=== PATIENT | male | born 1960 | race Two or more races ===

== ENCOUNTER 2017-01-07 21:45 | Emergency (ER) | payer MEDICARE ==
[2017-01-07 22:19] LABS: URINE APPEARANCE CLOUDY; URINE BILIRUBIN NEGATIVE (NEGATIVE); URINE BLOOD 4+ (NEGATIVE); URINE COLOR YELLOW; URINE GLUCOSE (UA) 3+ (NEGATIVE); URINE LEUKOCYTE ESTERASE NEGATIVE (NEGATIVE); URINE NITRITE NEGATIVE (NEGATIVE); URINE PROTEIN 1+ (NEGATIVE); URINE UROBILINOGEN NORMAL (0-1 mg/dl)
[2017-01-07 22:32] LABS: URINE BACTERIA FEW; URINE EPITHELIAL CELLS 0-1 /hpf; URINE WBC 0-1 /hpf
[2017-01-07] MEDS ORDERED: ONDANSETRON 4 MG/2ML 2 ML VIAL ONE (23:01)
[2017-01-07] MEDS ORDERED: KETOROLAC TROMETHAMINE 30 MG/ML 1 ML VIAL ONE (23:01)
[2017-01-07] MEDS ORDERED: HYDROMORPHONE HCL 1 MG/ML SYRINGE ONE (23:02)
[2017-01-07 23:23] LABS: ABSOLUTE NEUTROPHIL COUNT 10.1 K/mm3 (1.8-7.7); BASO % 0.2 % (0.2-1.0); EOS # 0.1 (0.0-0.5); EOS % 0.9 % (0.9-2.9); HEMOGLOBIN 14.2 gm/l (14.0-18.0); IMM NEUT # 0.1 K/mm3 (0-0.2); IMM NEUT% 0.4 % (0-1); LYMPH # 2.3 (1.0-4.8); LYMPH % 17.4 % (15-45); MEAN CELL VOLUME 84.7 fl (80.0-94.0); MEAN CORPUSCULAR HEMOGLOBIN 28.6 pg (27.0-31.0); MEAN CORPUSCULAR HGB CONC 33.8 g/dl (33.0-37.0); MEAN PLATELET VOLUME 10.2 fl (7.4-10.4); MONO # 0.8 (0.0-0.8); MONO % 5.7 % (4-12); NEUT % 75.4 % (43-75); PLATELET COUNT 261 K/mm3 (130-400); RED CELL DISTRIBUTION WIDTH 11.9 % (11.5-14.5)
[2017-01-07 23:44] LABS: ALBUMIN 3.8 gm/dL (3.5-5.7); CALCIUM 9.3 mg/dL (8.6-10.3)
[2017-01-08] MEDS ORDERED: ONDANSETRON 4 MG ODT TAB ONE (00:51)
--- NOTE | 2017-01-08 10:12 | CT ---
CT ABDOMEN AND PELVIS WITHOUT CONTRAST HISTORY: Right flank pain and dysuria. TECHNIQUE: No intravenous contrast administered; contiguous axial images were acquired from the lung bases to the ischial tuberosities. Oral contrast was not administered. COMPARISON:None. FINDINGS: LUNG BASES: Next airspace abnormality and ill-defined subcentimeter nodules of the right middle and lower lobes, worrisome for pneumonia. LIVER: Fatty infiltration. No mass effect. SPLEEN: No focal mass effect. Stomach: Small hiatal hernia. PANCREAS: No focal mass effect. ADRENAL GLANDS: No mass effect. KIDNEYS: Low-attenuation lesion of the left kidney, 1.2 cm in size, probable cyst. 4 mm nonobstructive calculus of the right lower renal pole. No collecting system dilatation. GALLBLADDER: Present. BOWEL: Moderate fecal loading. Limited assessment of the distal colon due to decompression. No abnormal small bowel dilatation. Prominent changes of sigmoid colonic diverticulosis without features of diverticulitis. APPENDIX: Normal gas-filled appendix. PELVIC ORGANS: No gross mass effect. FREE FLUID: No gross free fluid identified. ABDOMINOPELVIC LYMPH NODES: No abnormally enlarged lymph nodes identified. ABDOMINAL AORTA: Minor atherosclerotic calcifications. OSSEOUS STRUCTURES: Mild levoconvex lumbar curvature. Multilevel lumbar disc degeneration. No grossly destructive lesions. IMPRESSION: 1. Nonobstructive right renal calculus, 4 mm in size. No evidence of upper urinary tract obstruction. 2. Airspace abnormality and ill-defined nodules suspicious for right middle and lower lobe pneumonia. 3. Sigmoid diverticulosis without diverticulitis. Noninflammatory, nonobstructive appearance of bowel. 4. Small hiatal hernia. 5. Lumbar spondylosis. Preliminary report relayed to the Emergency Medicine medical service by Dr. Austin on 01/08/2017 at 0003 hours.
[2017-01-09 13:38] LABS: CHLAMYDIA BD Negative (Negative); N.GONORRHOEAE BD Negative (Negative); SOURCE Urine (())
== END 2017-01-08 01:21 | disposition home or self-care (01) ==
LOC: ED 21:45
DX: E11.65 Type 2 diabetes mellitus with hyperglycemia (principal); B37.42 Candidal balanitis; M54.5 Low back pain; N20.0 Calculus of kidney; J45.909 Unspecified asthma, uncomplicated; Z87.442 Personal history of urinary calculi